=== PATIENT | female | born 1965 | race Caucasian/White ===

== ENCOUNTER → 2016-11-07 09:54 | Outpatient (CLI) | payer BC | END | disposition home or self-care (01) | LOC: D.MRI 09:54 | DX: R55 Syncope and collapse (principal) ==

== ENCOUNTER → 2016-11-24 12:40 | Outpatient (CLI) | payer BC ==
--- NOTE | 2016-12-10 08:22 | EEG ---
PATIENT:REAL CALDERA DATE OF SERVICE: 11/24/16 MEDICAL RECORD: [id number] DATE OF : 61 LOCATION: [facility] ADMISSION DATE: 11/24/16 REFERRING PHYSICIAN: INTERPRETING PHYSICIAN: MELONIE PATIÑO MD DATE OF SERVICE: 11/24/2016 Electroencephalographic Report REFERRED BY: Dr. Lozada as an outpatient. ELECTROENCEPHALOGRAM NUMBER: [id number]. DATE OF EXAMINATION: 11/24/2016 at 1:20 p.m. TECHNICAL DATA: This electroencephalographic recording consists of approximately 20 minutes of data collection utilizing the international 10/20 system of electrode placement and both referential and non-referential montages. Sixteen channels of electrocerebral recording are accompanied by a 17th channel dedicated to the electrocardiographic rhythm and 2 channels of electromyographic recording. Recording is performed in the awake and drowsy states utilizing activation by hyperventilation and photic stimulation. ELECTROENCEPHALOGRAPHIC DATA: The awake state comprises approximately 80% of the recorded electrocerebral activity. Electromyographic artifact is prominent and rapid eye movements are seen. The posterior dominant background consists of a well-developed, symmetric, rhythmic, waxing and waning alpha activity of 9-10 Hz, which is suppressed by eye opening. The drowsy state comprises the remaining portion of the recorded electrocerebral activity. Electromyographic artifact is diminished and rapid eye movements are not seen. Also, seen is an intermittent irregular, generalized and symmetric 4-5 Hz theta slowing, which occurs for periods of 1-2 seconds approximately once every 1-2 pages. Background activity is also reduced. No abnormal or focal slowing is identified. No epileptiform discharges are seen. Hyperventilation and photic stimulation induced no abnormal change in the recorded electrocerebral activity. INTERPRETATION: Normal (awake and drowsy). This is a normal electroencephalographic recording. TRANSINT:[id number] Voice Confirmation ID: [id number] DOCUMENT ID: [id number] ELECTROENCEPHALOGRAM REPORT [id number] MAUROREAL GRAHAM MELONIE PATIÑO MD at 0822 CC: [id number] DICTATION DATE: 11/25/16 0812 [employer] PRO[employer] DIRECTOR: 11/25/16 2000 DEP CLI 11/24/16 [place] [address]
== END | disposition home or self-care (01) ==
LOC: D.CN 12:40
DX: R55 Syncope and collapse (principal)